=== PATIENT | male | born 1975 | race Caucasian/White ===

== ENCOUNTER 2017-11-29 20:39 | Emergency (ER) | payer BC ==
[~2017-11-29] VITALS: Ht 172.7 cm; Wt 78.5 kg
[~2017-11-29 20:39] MED LIST: DOXYCYCLINE MO100 MG ORAL
[2017-11-29 21:08] VITALS: BP 115/74
[2017-11-29 21:20] VITALS: BP 115/74
--- NOTE | 2017-11-30 03:35 | Emergency Room Report ---
History of Present Illness General Chief Complaint: Earache Source: Patient Present Illness HPI Patient presents with complaints of her discomfort bilaterally Mainly pressure in the left ear Patient has different sensation of popping sound also tinnitus and bilateral ear Patient denies any chest pain or shortness of breath He felt that today he was having palpitations sensation denies any fever denies any vomiting or diarrhea Patient reports that last year he had tonsils removed And since then he has had multiple problems More recently with increased cough as well he was concerning came to the ER Allergies: Coded Allergies: AMOXICILLIN (Verified Allergy, Unknown, 11/29/17) Patient History Past Medical History: see triage record Pertinent Family History: none Reviewed Nursing Documentation: PMH: Agreed, PSxH: Agreed Nursing Documentation-PMH Hx Cardiac Problems: No Hx Cancer: No Hx Gastrointestinal Problems: Yes - ANAL FISTULA Hx Neurological Problems: No Review of Systems All Other Systems: negative except mentioned in HPI Physical Exam Vital Signs Date Time Temp Pulse Resp B/P (MAP) Pulse Ox O2 Delivery O2 Flow Rate FiO2 11/29/17 20:45 98.8 70 18 115/74 98 Sp02 EP Interpretation: reviewed, normal General Appearance: well appearing, no apparent distress Head: normocephalic, atraumatic Eyes: bilateral eye PERRL, bilateral eye EOMI ENT: hearing grossly normal, normal pharynx, uvula midline, other - Mild bulging of the left tympanic membrane no obvious erythema Neck: full range of motion, supple, no meningismus, no bony tend Respiratory: lungs clear, normal breath sounds, no rhonchi, no respiratory distress, no retraction, no accessory muscle use Cardiovascular #1: normal peripheral pulses, regular rate, rhythm, no edema, no gallop, no JVD, no murmur Gastrointestinal: normal bowel sounds, non tender, soft, no mass, no organomegaly, non-distended, no guarding, no hernia, no pulsatile mass, no rebound Genitourinary: no CVA tenderness Musculoskeletal: normal inspection Neurologic: oriented x3, responsive, correction lieutenant III-XII nml as tested, motor strength/ tone normal, sensory intact Psychiatric: mood/affect normal Skin: normal color, no rash, warm/dry, palpation normal Lymphatic: normal inspection, no adenopathy Medical Decision Making Diagnostic Impression: Primary Impression: Earache symptoms in both ears ER Course Patient has a benign neurological evaluation At this time I did also discuss some overlap with amoxicillin and cephalosporins allergies the patient is on a cephalosporin this time and reports severe allergy to amoxicillin including tachycardia For there is some consideration for overlap and reaction to the medication Patient also discuss regarding zyrtec Patient reports that he was also given a medicine by his physician however has not fill that medication Patient has been recently seen by his infectious disease and primary physician I recommended that his ENT would be appropriate followup as well at this time patient is stable for close followup Last Vital Signs Date Time Temp Pulse Resp B/P (MAP) Pulse Ox O2 Delivery O2 Flow Rate FiO2 11/29/17 21:20 98.8 18 115/74 98 11/29/17 20:45 70 Status: unchanged Disposition: HOME, SELF-CARE Condition: Stable Referrals: NON PHYSICIAN (PCP) Patient Instructions: Earache Additional Instructions: Patient is provided with the discharge instructions notified to follow up with primary doctor in the next 2-3 days otherwise return to the er with any worsening symptoms. Please note that this report is being documented using [employer] technology. This can lead to erroneous entry secondary to incorrect interpretation by the dictating instrument. EDDA CULLEN D.O. Nov 30, 2017 03:35
== END 2017-11-29 21:20 | disposition home or self-care (01) ==
LOC: EMR 21:03
DX: H92.03 Otalgia, bilateral (principal); Z88.0 Allergy status to penicillin
CPT/HCPCS: 99283

== ENCOUNTER 2017-12-22 18:12 | Emergency (ER) | payer BC ==
[~2017-12-22] VITALS: Ht 172.7 cm; Wt 78.0 kg
[2017-12-22] MEDS ORDERED: ESCITALOPRAM OXA5 MG PO (18:26)
--- NOTE | 2017-12-22 18:58 | Emergency Room Report ---
History of Present Illness General Chief Complaint: General Complaint Source: Patient Present Illness HPI 42-year-old male presents to the emergency department complaining of persistent cough, sputum production, 8/10 in severity body aches including bilateral upper extremity, lower extremity and rib cage muscle pains. Exacerbated upon coughing. Patient also reports pressure like headache that is severe to 10 in severity he reports pressure discomfort in the bilateral ears as well. Pt reports sore throat as well. Patient states that he has been having his symptoms for almost one month now he states that he finished a course of Ceftin and was feeling better however his symptoms quickly returned. With multiple ill contacts at home. Patient reports swelling and a small bump on the anterior sternum since last night with tenderness. Patient denies having yearly flu vaccination. Denies high fevers, lethargy, neck pain/stiffness, irritability, photophobia dehydration, N/V/D. Denies Cp, Palpitations, LOC, AMS , seizures, paresthesias, or changes in Hearing or vision, no Sudden severe PATEL. Allergies: Coded Allergies: AMOXICILLIN (Verified Allergy, Unknown, 11/29/17) LINEZOLID (Verified Allergy, Unknown, 12/22/17) Patient History Past Medical History: see triage record Past Surgical History: none Pertinent Family History: none Reviewed Nursing Documentation: PMH: Agreed, PSxH: Agreed Nursing Documentation-PMH Hx Cardiac Problems: No Hx Cancer: No Hx Gastrointestinal Problems: Yes - ANAL FISTULA Hx Neurological Problems: No - RIGHT WRIST SURGERY Review of Systems All Other Systems: negative except mentioned in HPI Physical Exam Vital Signs Date Time Temp Pulse Resp B/P (MAP) Pulse Ox O2 Delivery O2 Flow Rate FiO2 12/22/17 18:21 98.2 99 19 112/72 97 Room Air Sp02 EP Interpretation: reviewed, normal General Appearance: no apparent distress, alert, GCS 15, non-toxic Head: normocephalic, atraumatic Eyes: bilateral eye normal inspection, bilateral eye PERRL ENT: hearing grossly normal, normal voice Neck: full range of motion, no meningismus, no bony tend Respiratory: lungs clear, normal breath sounds, speaking full sentences, other - anterior sternum TTP. Cardiovascular #1: regular rate, rhythm Rectal: deferred Genitourinary: normal inspection Musculoskeletal: back normal, gait/station normal, normal range of motion, non- tender - no appreciable TTP . Neurologic: alert, oriented x3, responsive, motor strength/tone normal, sensory intact, speech normal, grossly normal Psychiatric: judgement/insight normal Skin: normal color, no rash, warm/dry, well hydrated Lymphatic: no adenopathy Medical Decision Making PA Attestation Dr. Frias is my supervising Physician whom patient management has been discussed with. Diagnostic Impression: Primary Impression: Upper respiratory infection, viral Additional Impressions: Viral syndrome Sternal mass ER Course 42-year-old male presents to the emergency department complaining of persistent cough, sputum production, body aches including bilateral upper extremity, lower extremity and rib cage muscle pains. Exacerbated upon coughing. Patient also reports pressure like headache that is severe to 10 in severity he reports pressure discomfort in the bilateral ears as well. Pt reports sore throat as well. Patient states that he has been having his symptoms for almost one month now he states that he finished a course of Ceftin and was feeling better however his symptoms quickly returned. With multiple ill contacts at home. Patient denies having yearly flu vaccination. Denies high fevers, lethargy, neck pain/stiffness, irritability, photophobia dehydration, N/V/D. Denies Cp, Palpitations, LOC, AMS, seizures, paresthesias, or changes in Hearing or vision , no Sudden severe PATEL. Ddx considered but are not limited to URI, pneumonia, PE, strep pharyngitis, meningitis. Vital signs: Pt. is afebrile, the remaining VS are WNL, non-toxic in appearance , NAD H&PE are most consistent with URI- no meningeal signs, oropharynx is not involved, no evidence of bacterial infection at this time. LUngs are CTA however will perform CXR due to cc of productive cough x 1 month r/o atypical pneumonia. on PE I did not palpate an appreciable superficial sternal lump as pt. cc. he reports everytime he palpates he believes it is getting bigger. Pt. does not have cardiac RF's ORDERS: -CXR: Unremarkable ED INTERVENTIONS: None required at this time. --PT. EDUCATION: Discussed antibiotic resistance with inappropriate prescribing of antibiotics for viral illnesses. Discussed signs and symptoms to indicate viral illness versus bacterial illness. --I do not identify an emergent condition at this time. With current presentation, pt. is stable for close outpatient follow up and conservative treatment. D/w pt. to return promptly to ED with worsening or new symptoms.- Pt. (and or responsible alliance party) verbalizes' understanding and agreement with proposed treatment plan.proposed treatment plan. DISCHARGE: At this time pt. is stable for d/c to home. Will provide printed patient care instructions, and any necessary prescriptions. Care plan and follow up instructions have been discussed with the patient prior to discharge. Chest X-Ray Diagnostic Results Chest X-Ray Diagnostic Results : Chest X-Ray Ordered: Yes # of Views/Limited/Complete: 1 View Indication: Shortness of Breath EP Interpretation: Yes BRANDON Xray: Interpretation reviewed, by supervising MD, and agrees with findings. Interpretation: no consolidation, no effusion, no pneumothorax, no acute cardiopulmonary disease Impression: No acute disease Electronically Signed by: Meryl Rubi PA-C Last Vital Signs Date Time Temp Pulse Resp B/P (MAP) Pulse Ox O2 Delivery O2 Flow Rate FiO2 12/22/17 18:21 98.2 99 19 112/72 97 Room Air Disposition: HOME, SELF-CARE Condition: Stable Scripts Naproxen Sodium (NAPROXEN SODIUM) 550 Mg Tablet 550 MG ORAL TWICE A DAY, #20 TAB Prov: Meryl Rubi 12/22/17 Codeine/Promethazine Hcl* (PROMETHAZINE-CODEINE SYRUP*) 118 Ml Syrup 5 ML ORAL Q6H Y for For Cough, #120 ML 0 Refills Prov: Meryl Rubi 12/22/17 Patient Instructions: Medical Screening Exam, Viral Respiratory Infection Additional Instructions: Take medications as directed. Follow up with a Primary Care Provider in 3-5 days, even if your symptoms have resolved. --Please review list of primary care clinics, if you do not already have a primary care provider Return sooner to ED if new symptoms occur, or current symptoms become worse. Do not drink alcohol, drive, or operate heavy machinery while taking Cough Syrup as this may cause drowsiness. - Please note that this Emergency Department Report was dictated using [employer] ambassador technology software, occasionally this can lead to erroneous entry secondary to interpretation by the dictation equipment. Meryl Rubi Dec 22, 2017 18:58
[2017-12-22 18:59] VITALS: BP 112/72
[2017-12-22] MEDS ORDERED: IBUPROFEN600 MG ORAL (19:18)
[2017-12-22] MEDS ORDERED: PROMETHAZINE-C118 M1 ORAL (19:18)
[2017-12-22] MEDS ORDERED: CLARITIN10 MG ORAL (19:18)
[2017-12-22] MEDS ORDERED: NAPROXEN SODIU550 M1 ORAL (19:29)
[2017-12-22 19:30] VITALS: BP 118/68
--- NOTE | 2017-12-23 10:31 | Diagnostic Imaging Report ---
Indication: Chest pain Technique: One view of the chest Comparison: none Findings: Lungs and pleural spaces are clear. Heart size is normal Impression: No acute process
== END 2017-12-22 19:55 | disposition home or self-care (01) ==
LOC: EMR 19:45
DX: J06.9 Acute upper respiratory infection, unspecified (principal); B34.9 Viral infection, unspecified; Z88.0 Allergy status to penicillin; Z98.890 Other specified postprocedural states
CPT/HCPCS: 71045; 99284

== ENCOUNTER 2018-04-13 22:21 | Emergency (ER) | payer BC, OTHER ==
[~2018-04-13] VITALS: Ht 175.3 cm; Wt 80.7 kg
[~2018-04-13 22:21] MED LIST changes: +CLARITIN10 MG ORAL; +ESCITALOPRAM OXA5 MG PO; +IBUPROFEN600 MG ORAL; +NAPROXEN SODIU550 M1 ORAL; +PROMETHAZINE-C118 M1 ORAL
[2018-04-13] MEDS ORDERED: TRUVADA 200 MG1 EAC1 ORAL (22:29)
[2018-04-13] MEDS ORDERED: ZITHROMAX250 MG ORAL (22:29)
[2018-04-13 22:30] VITALS: BP 110/74
[2018-04-13] MEDS ORDERED: SUDAFED 12 HOU120 M1 PO (22:56)
--- NOTE | 2018-04-13 22:57 | Emergency Room Report ---
History of Present Illness General Chief Complaint: Upper Respiratory Illness Source: Patient Present Illness HPI Is a 43-year-old male who has a lot of foraminal in full allergies. He presents with chief complaint of sinus congestion. He seen another doctor ready and prescribed azithromycin. He's finishing that up is not getting better. He said it felt some tightness in his chest now. No fever chills but no cough or congestion. Worse with blowing his nose. Denies any other complaint. Allergies: Coded Allergies: AMOXICILLIN (Verified Allergy, Unknown, 11/29/17) LINEZOLID (Verified Allergy, Unknown, 12/22/17) Patient History Past Medical History: see triage record, old chart reviewed Past Surgical History: other Pertinent Family History: none Social History: Denies: smoking Immunizations: other Reviewed Nursing Documentation: PMH: Agreed; PSxH: Agreed Nursing Documentation-PMH Past Medical History: No Stated History Hx Cardiac Problems: No Hx Cancer: No Hx Gastrointestinal Problems: Yes - ANAL FISTULA Hx Neurological Problems: No - RIGHT WRIST SURGERY Review of Systems Eye: Denies: eye pain, blurred vision ENT: Reports: ear pain, nose congestion; Denies: throat swelling Respiratory: Denies: cough, shortness of breath Cardiovascular: Denies: chest pain, palpitations Gastrointestinal: Denies: abdominal pain, diarrhea, nausea, vomiting Musculoskeletal: Denies: back pain, joint pain Skin: Denies: rash Neurological: Denies: headache, numbness Endocrine: Denies: increased thirst, increased urine Hematologic/Lymphatic: Denies: easy bruising All Other Systems: negative except mentioned in HPI Physical Exam Vital Signs Date Time Temp Pulse Resp B/P (MAP) Pulse Ox O2 Delivery O2 Flow Rate FiO2 04/13/18 22:25 98.1 75 14 110/74 97 Room Air 98.1 vitals normal Sp02 EP Interpretation: reviewed, normal General Appearance: well appearing, no apparent distress, alert Head: normocephalic, atraumatic Eyes: bilateral eye PERRL, bilateral eye EOMI ENT: hearing grossly normal, normal pharynx, other - Bilateral TM with fluid levels and myringitis. Neck: full range of motion, supple, no meningismus Respiratory: chest non-tender, lungs clear, normal breath sounds Cardiovascular #1: regular rate, rhythm, no murmur Gastrointestinal: normal bowel sounds, non tender, no mass, no organomegaly, no bruit, non-distended Musculoskeletal: back normal, gait/station normal, normal range of motion Psychiatric: mood/affect normal Skin: warm/dry Medical Decision Making Diagnostic Impression: Primary Impression: Myringitis of both ears ER Course Patient presents with viral infection and the myringitis. He is arty on antibiotics. We'll put on decongestant. No evidence of mastoiditis, sepsis or other bacterial infection. Last Vital Signs Date Time Temp Pulse Resp B/P (MAP) Pulse Ox O2 Delivery O2 Flow Rate FiO2 04/13/18 22:25 98.1 75 14 110/74 97 Room Air 98.1 Status: unchanged Disposition: HOME, SELF-CARE Condition: Stable Scripts Pseudoephedrine Hcl (SUDAFED 12 HOUR) 120 Mg Tablet.er 120 MG PO BID, #30 TAB Prov: SUNIL MAGANA M.D. 04/13/18 Additional Instructions: follow-up with your doctor in 7 days. Return if worse. SUNIL MAGANA M.D. April 13, 2018 22:57
[2018-04-13 23:03] VITALS: BP 0/0
== END 2018-04-13 23:03 | disposition home or self-care (01) ==
LOC: EMR 22:54
DX: H73.23 Unspecified myringitis, bilateral (principal); Z88.8 Allergy status to other drugs, medicaments and biological substances
CPT/HCPCS: 99283

== ENCOUNTER 2018-04-22 22:38 | Emergency (ER) | payer OTHER ==
[~2018-04-22] VITALS: Ht 175.3 cm; Wt 79.4 kg
[~2018-04-22 22:38] MED LIST changes: +SUDAFED 12 HOU120 M1 PO; +TRUVADA 200 MG1 EAC1 ORAL; +ZITHROMAX250 MG ORAL
[2018-04-22] MEDS ORDERED: CLARITHROMYCIN500 MG PO (22:53)
[2018-04-22 22:57] VITALS: BP 118/78
--- NOTE | 2018-04-22 22:57 | Emergency Room Report ---
History of Present Illness General Chief Complaint: General Complaint Source: Patient Present Illness HPI Is a 43-year-old male who has been on multiple antibiotics for different sinus infection. He present today with tenderness down his right tib-fib area. He said he looked online and is assigned of infection. He's currently taking clarithromycin. He also pointed to both of the lower back area as area of possible infection also. No fever chills but no nausea no vomiting. This been ongoing for about a day. Allergies: Coded Allergies: AMOXICILLIN (Verified Allergy, Unknown, 11/29/17) LINEZOLID (Verified Allergy, Unknown, 12/22/17) Patient History Past Medical History: see triage record, old chart reviewed Past Surgical History: other Pertinent Family History: none Social History: Denies: smoking Immunizations: other Reviewed Nursing Documentation: PMH: Agreed; PSxH: Agreed Nursing Documentation-PMH Hx Cardiac Problems: No - tonsillectomy Hx Cancer: No Hx Gastrointestinal Problems: Yes - ANAL FISTULA Hx Neurological Problems: No - RIGHT WRIST SURGERY Review of Systems Eye: Denies: eye pain, blurred vision ENT: Denies: ear pain, nose congestion, throat swelling Respiratory: Denies: cough, shortness of breath Cardiovascular: Denies: chest pain, palpitations Gastrointestinal: Denies: abdominal pain, diarrhea, nausea, vomiting Musculoskeletal: Reports: back pain; Denies: joint pain Skin: Denies: rash Neurological: Denies: headache, numbness Endocrine: Denies: increased thirst, increased urine Hematologic/Lymphatic: Denies: easy bruising All Other Systems: negative except mentioned in HPI Physical Exam Vital Signs Date Time Temp Pulse Resp B/P (MAP) Pulse Ox O2 Delivery O2 Flow Rate FiO2 04/22/18 22:44 98.1 73 16 118/78 95 Room Air 98.1 Sp02 EP Interpretation: reviewed, normal General Appearance: well appearing, no apparent distress, alert Head: normocephalic, atraumatic Eyes: bilateral eye PERRL, bilateral eye EOMI ENT: hearing grossly normal, normal pharynx Neck: full range of motion, supple, no meningismus Respiratory: chest non-tender, lungs clear, normal breath sounds Cardiovascular #1: regular rate, rhythm, no murmur Gastrointestinal: normal bowel sounds, non tender, no mass, no organomegaly, no bruit, non-distended Musculoskeletal: back normal, gait/station normal, normal range of motion, other - Is a right lower extremity looks completely normal. No evidence of any redness. No warmth no evidence of any infection. He points to the dimples in his back above the gluteal cleft. This is a normal finding. There is no evidence of any infection. Psychiatric: mood/affect normal Skin: warm/dry Medical Decision Making Diagnostic Impression: Primary Impression: Encounter for generalized patient complaints Additional Impression: Paresthesia ER Course Patient present with vague complaints. I see no evidence of any infection. His arty on antibiotics. I see no need for any testing. Patient certainly has a component of hypochondriac. I tried to reassure the patient. I have told him I see no need for any testing done. Last Vital Signs Date Time Temp Pulse Resp B/P (MAP) Pulse Ox O2 Delivery O2 Flow Rate FiO2 04/22/18 22:44 98.1 73 16 118/78 95 Room Air 98.1 Status: unchanged Disposition: HOME, SELF-CARE Condition: Stable Additional Instructions: Follow-up with your doctor for any routine testing that need to be done. Follow -up within a week. There is no evidence of any infection that you have here. We are currently on antibiotics already. Return if symptom worsen. SUNIL MAGANA M.D. Apr 22, 2018 22:57
[2018-04-22 23:01] VITALS: BP 118/78
== END 2018-04-22 23:03 | disposition home or self-care (01) ==
LOC: EMR 22:58
DX: R20.2 Paresthesia of skin (principal); M54.9 Dorsalgia, unspecified; Z88.0 Allergy status to penicillin
CPT/HCPCS: 99283

== ENCOUNTER 2018-05-07 10:44 | Emergency (ER) | payer OTHER ==
[~2018-05-07] VITALS: Ht 175.3 cm; Wt 79.4 kg
[~2018-05-07 10:44] MED LIST changes: +CLARITHROMYCIN500 MG PO
[2018-05-07] MEDS ORDERED: NKM (10:51)
[2018-05-07 10:56] VITALS: BP 112/79
[2018-05-07 11:13] LABS: BASOPHILS % (AUTO) 0.7 % (0.0-2.0); EOSINOPHILS % (AUTO) 1.4 % (0.0-3.0); HEMOGLOBIN 16.8 G/DL (14.2-18.0); LYMPHOCYTES % (AUTO) 37.6 % (20.0-45.0); MEAN CORPUSCULAR VOLUME 94 FL (80-99); MONOCYTES % (AUTO) 7.4 % (1.0-10.0); NEUTROPHILS % (AUTO) 52.9 % (45.0-75.0); PLATELET COUNT 241 K/UL (150-450); RED BLOOD COUNT 5.32 M/UL (4.70-6.10); RED CELL DISTRIBUTION WIDTH 12.6 % (11.6-14.8); WHITE BLOOD COUNT 6.7 K/UL (4.8-10.8)
[2018-05-07 11:34] LABS: ANION GAP 8 mmol/L (5-15); BLOOD UREA NITROGEN 14 mg/dL (7-18); CALCIUM 9.3 MG/DL (8.5-10.1); CARBON DIOXIDE 28 MMOL/L (21-32); CHLORIDE 105 MMOL/L (98-107); CREATININE 1.3 MG/DL (0.55-1.30); POTASSIUM 4.1 MMOL/L (3.5-5.1); SODIUM 141 MMOL/L (136-145)
--- NOTE | 2018-05-07 11:44 | Emergency Room Report ---
History of Present Illness General Chief Complaint: General Complaint Source: Patient Present Illness HPI 43-year-old male presents to the ER with 1 month history of cough with brownish yellow sputum, denies chest pain, denies hemoptysis, denies syncope, but does report bilateral leg numbness sensation as well as intermittent blurred vision, sinus congestion, and minimal relief with a course of antibiotics she started taking. He denies any fevers, vomiting, abdominal pain, any other symptoms. He does report he recently traveled from [place]. Allergies: Coded Allergies: AMOXICILLIN (Verified Allergy, Unknown, 11/29/17) Patient History Past Medical History: see triage record Reviewed Nursing Documentation: PMH: Agreed; PSxH: Agreed Nursing Documentation-PMH Hx Cardiac Problems: No - tonsillectomy Hx Cancer: No Hx Gastrointestinal Problems: Yes - ANAL FISTULA Hx Neurological Problems: No - RIGHT WRIST SURGERY Review of Systems All Other Systems: negative except mentioned in HPI Physical Exam Vital Signs Date Time Temp Pulse Resp B/P (MAP) Pulse Ox O2 Delivery O2 Flow Rate FiO2 05/07/18 10:47 98.0 64 17 112/79 99 Room Air 98.1 Sp02 EP Interpretation: reviewed, normal General Appearance: no apparent distress, alert, non-toxic Head: normocephalic Eyes: bilateral eye normal inspection, bilateral eye PERRL, bilateral eye EOMI ENT: normal ENT inspection, hearing grossly normal, normal pharynx, no angioedema, normal voice, TMs + canals normal, moist mucus membranes, nasal congestion, other - Absent tonsils Neck: normal inspection, full range of motion, supple, supple/symm/no masses Respiratory: chest non-tender, lungs clear, normal breath sounds, chest symmetrical, palpation of chest normal Cardiovascular #1: normal peripheral pulses, regular rate, rhythm Cardiovascular #2: 2+ radial (R), 2+ radial (L) Gastrointestinal: normal inspection, non tender, soft, no mass, no guarding, no rebound Rectal: deferred Genitourinary: normal inspection, no CVA tenderness Musculoskeletal: back normal, gait/station normal, normal range of motion, non- tender, no calf tenderness, Jason's Sign negative Neurologic: alert, oriented x3, responsive, molder machine tender III-XII nml as tested, motor strength/tone normal, sensory intact, cerebellar normal, speech normal Psychiatric: judgement/insight normal, memory normal, mood/affect normal, no suicidal/homicidal ideation Skin: normal color, no rash, warm/dry, normal turgor Lymphatic: no adenopathy Medical Decision Making Diagnostic Impression: Primary Impression: Sinusitis ER Course Patient is PERC rule Negative for PE, has a normal EKG and chest x-ray, will discharge as his clinical diagnosis is sinusitis. He's already taken a course of antibiotics, and he has no red boggy sinuses or sinus tenderness on examination, will recommend intranasal steroids and a Neti pot use at home. EKG Diagnostic Results EKG Time: 11:15 EP Interpretation: no st-t changes, no TWI, no [id number] Rate: normal Rhythm: NSR ST Segments: no acute changes ASA given to the pt in ED: No Rhythm Strip Diag. Results Rhythm Strip Time: 11:43 EP Interpretation: yes Rate: 63 Rhythm: NSR, no PVC's, no ectopy Chest X-Ray Diagnostic Results Chest X-Ray Diagnostic Results : Chest X-Ray Ordered: Yes # of Views/Limited/Complete: 1 View Indication: Other EP Interpretation: Yes Interpretation: no consolidation, no effusion, no pneumothorax, no acute cardiopulmonary disease Impression: No acute disease Electronically Signed by: Donny Mckoy MD Last Vital Signs Date Time Temp Pulse Resp B/P (MAP) Pulse Ox O2 Delivery O2 Flow Rate FiO2 05/07/18 10:56 98.1 78 17 112/79 99 Room Air 98.1 Disposition: HOME, SELF-CARE Condition: Stable Referrals: NON PHYSICIAN (PCP) DONNY MCKOY M.D May 07, 2018 11:44
[2018-05-07 11:46] LABS: ALANINE AMINOTRANSFERASE 37 U/L (12-78); ALBUMIN 4.2 G/DL (3.4-5.0); ALBUMIN/GLOBULIN RATIO 1.2 (1.0-2.7); ALKALINE PHOSPHATASE 112 U/L (46-116); ASPARTATE AMINO TRANSFERASE 21 U/L (15-37); BILIRUBIN,TOTAL 0.5 MG/DL (0.2-1.0)
[2018-05-07] MEDS ORDERED: FLUTICASONE PRO16 G1 NASAL (11:48)
[2018-05-07 11:50] VITALS: BP 106/91
[2018-05-07] MEDS ORDERED: MUCINEX600 MG PO (11:50)
[2018-05-07 11:56] VITALS: BP 106/91
--- NOTE | 2018-05-07 14:58 | Diagnostic Imaging Report ---
Indication: Cough Technique: One view of the chest Comparison: 12/22/2017 Findings: Lungs and pleural spaces are clear. Heart size is normal . No significant interim change Impression: No acute process
== END 2018-05-07 11:57 | disposition home or self-care (01) ==
LOC: EMR 11:25
DX: J32.9 Chronic sinusitis, unspecified (principal); Z88.0 Allergy status to penicillin
CPT/HCPCS: 36415; 71045; 80053; 83880; 84484; 85025; 99283